=== PATIENT | male | born 1955 | race Caucasian/White ===

== ENCOUNTER 2022-11-04 13:01 | Inpatient (IN) | payer MEDICARE ==
[2022-11-04 13:35] LABS: #Basophils 0.1 10x3/uL (0.0-0.2); #Eosinphils 0.3 10x3/uL (0.0-0.5); #Monocytes 0.8 10x3/uL (0.0-1.1); #Neutrophils 3.5 10x3/uL (1.5-8.4); %Basophils 1.3 % (0.0-2.0); %Eosinophils 4.5 % (0.0-6.0); %Monocytes 12.6 % (0.0-10.0); %Neutrophils 52.5 % (40.0-75.0); Hemoglobin 13.1 g/dL (13.5-17.5); Mean Corpuscular HGB CONC 31.4 g/dL (32.0-36.0); Mean Corpuscular Hemoglobin 25.5 pg (27.0-33.0); Mean Corpuscular Volume 81.3 fl (81.2-95.1); Mean Platelet Volume 10.9 fl (7.4-10.4); Platelet Count 262 10x3/uL (150-450); Red Blood Cell (RBC) Count 5.13 10x6/uL (4.32-5.72); White Blood Cell (WBC) Count 6.7 10x3/uL (3.5-10.5)
[2022-11-04 13:46] LABS: INR-International Normal Ratio 1.1; PTT 28.7 sec (22.0-33.0); Prothrombin Time 11.7 sec (9.5-12.1)
[2022-11-04 13:51] LABS: ALT (SGPT) 26 U/L (8-55); AST (SGOT) 24 U/L (5-34); Albumin 4.4 g/dL (3.4-4.8); Alkaline Phosphatase 75 U/L (40-110); Anion Gap 11 mmol/L (10-20); BUN (Urea Nitrogen) 31 mg/dL (8.4-25.7); Bilirubin, Total 0.5 mg/dL (0.2-1.2); Calc. Creatinine Clearance 0 mL/min (70-130); Calcium 9.6 mg/dL (7.8-10.44); Carbon Dioxide 24 mmol/L (23-31); Chloride 108 mmol/L (98-107); Estimated GFR 33; Globulin 3.1 g/dL (2.4-3.5); Glucose 89 mg/dL (80-115); Potassium 4.4 mmol/L (3.5-5.1); Protein, Total 7.5 g/dL (5.8-8.1); Sodium 139 mmol/L (136-145)
[2022-11-04] MEDS ORDERED: Dextrose 50% Abboject 50 ML SYRINGE SLOW IVP PRN (16:34)
[2022-11-04] MEDS ORDERED: Dextrose 5% in Water 1,000 ML IV PRN (16:34)
[2022-11-04] MEDS ORDERED: HumaLOG 300 UNITS/3 ML VIAL SC PRN (16:34)
[2022-11-04 16:43] VITALS: BMI 32.8
[2022-11-04 16:54] LABS: Magnesium 2.1 mg/dL (1.6-2.6); Phosphorus 3.4 mg/dL (2.3-4.7)
[2022-11-04 17:11] LABS: SARS-CoV-2 NAA Rapid Test Not Detected (NotDetected)
[2022-11-04] MEDS: Sodium Chloride 0.9% 1,000 ML IV SCH (17:18)
[2022-11-04 20:11] LABS: Hemoglobin A1c 6.4 % (4.0-6.0)
[2022-11-04] MEDS: Rivaroxaban 2.5 MG TAB PO SCH (20:36)
[2022-11-04] MEDS ORDERED: Amitriptyline HCl 10 MG TAB PO SCH (21:00)
[2022-11-04] MEDS ORDERED: Atorvastatin Calcium 10 MG TAB PO SCH (21:00)
[2022-11-05] MEDS: Sodium Chloride 0.9% 1,000 ML IV SCH (02:07)
[2022-11-05 04:11] LABS: #Basophils 0.1 10x3/uL (0.0-0.2); #Eosinphils 0.3 10x3/uL (0.0-0.5); #Monocytes 0.7 10x3/uL (0.0-1.1); %Basophils 1.1 % (0.0-2.0); %Eosinophils 5.1 % (0.0-6.0); %Lymphocytes 23.6 % (18.0-47.0); %Monocytes 9.8 % (0.0-10.0); %Neutrophils 60.1 % (40.0-75.0); Hemoglobin 12.2 g/dL (13.5-17.5); Mean Corpuscular HGB CONC 31.4 g/dL (32.0-36.0); Mean Corpuscular Volume 79.5 fl (81.2-95.1); Mean Platelet Volume 11.3 fl (7.4-10.4); Platelet Count 200 10x3/uL (150-450); Red Blood Cell (RBC) Count 4.88 10x6/uL (4.32-5.72); White Blood Cell (WBC) Count 6.6 10x3/uL (3.5-10.5)
[2022-11-05 04:23] VITALS: TEMP 97.9
[2022-11-05 04:29] LABS: ALT (SGPT) 22 U/L (8-55); AST (SGOT) 31 U/L (5-34); Albumin 3.7 g/dL (3.4-4.8); Alkaline Phosphatase 60 U/L (40-110); Anion Gap 14 mmol/L (10-20); BUN (Urea Nitrogen) 24 mg/dL (8.4-25.7); Bilirubin, Total 0.4 mg/dL (0.2-1.2); Calc. Creatinine Clearance 73 mL/min (70-130); Calcium 8.9 mg/dL (7.8-10.44); Carbon Dioxide 19 mmol/L (23-31); Chloride 111 mmol/L (98-107); Estimated GFR 51; Globulin 3.3 g/dL (2.4-3.5); Glucose 113 mg/dL (80-115); Sodium 139 mmol/L (136-145)
[2022-11-05] MEDS ORDERED: hydrALAZINE 20 MG/ML VIAL SLOW IVP SCH (04:45)
[2022-11-05 05:48] VITALS: BP 177/87
[2022-11-05] MEDS ORDERED: Levothyroxine 150 MCG TAB PO SCH (06:00)
[2022-11-05] MEDS: Rivaroxaban 2.5 MG TAB PO SCH (07:59)
[2022-11-05] MEDS ORDERED: Aspirin 81 mg Enteric Coated Tablet PO SCH (09:00)
== END 2022-11-05 13:00 | disposition home or self-care (01) | DRG 309 ==
LOC: CSHERS 13:01 → CSHIMCU 15:34
PROVIDERS: ADMIT Internal Medicine; ATTEND Internal Medicine
DX: R00.1 Bradycardia, unspecified (principal); N17.9 Acute kidney failure, unspecified; E86.0 Dehydration; I10 Essential (primary) hypertension; E03.9 Hypothyroidism, unspecified; E78.5 Hyperlipidemia, unspecified; K21.9 Gastro-esophageal reflux disease without esophagitis; E11.51 Type 2 diabetes mellitus with diabetic peripheral angiopathy without gangrene; F32.A Depression, unspecified; Z20.822 Contact with and (suspected) exposure to COVID-19; Z90.49 Acquired absence of other specified parts of digestive tract; Z98.890 Other specified postprocedural states; Z79.82 Long term (current) use of aspirin; Z79.899 Other long term (current) drug therapy
CPT/HCPCS: 36415; 36416; 80053; 83036; 83735; 84100; 84484; 85025; 85610; 85730; 93005; 96360; 96361; J0360; J1815; J7050; U0002

== ENCOUNTER 2022-11-08 12:17 | Emergency (ER) | payer MEDICARE ==
[2022-11-08] MEDS ORDERED: HYDROcodone/Acetaminophen 10/325 mg Tablet ONE (14:18)
== END 2022-11-08 13:43 | disposition home or self-care (01) ==
LOC: CSHERS 12:17
DX: S89.92XA Unspecified injury of left lower leg, initial encounter (principal); I10 Essential (primary) hypertension; K21.9 Gastro-esophageal reflux disease without esophagitis; X58.XXXA Exposure to other specified factors, initial encounter